=== PATIENT | female | born 1975 | race Caucasian/White ===

== ENCOUNTER 2018-10-11 11:00 | Emergency (ER) | payer OTHER ==
[~2018-10-11] VITALS: Ht 172.7 cm; Wt 63.5 kg
[~2018-10-11 11:00] MED LIST: ACETAMINOPHEN-1 EAC1 PO; ADDERALL 20 MG20 M1 PO; BENADRYL25 MG PO; CELEXA40 MG PO; COLESTIPOL HCL1 G1 PO; COMPAZINE10 MG PO; COUMADIN 4 MG TA4 M1; DOXYCYCLINE 10100 MG PO; FLOMAX0.4 MG PO; HYDROCODONE-AP1 EAC6 PO; IBUPROFEN 800800 M1 PO; LEXAPRO; LORTAB 5-500 T1 EAC1 PO; MACROBID 100 M100 M1 PO; MAXALT; MEDROL DOSPAK21 TA1 PO; MERCAPTOPURINE; NORCO 5-325 TA1 EACH PO; PENTASA500 MG PO; PHENERGAN 25 MG25 M1 PO; PREDNISONE; PREDNISONE 10 M10 M1 PO; TOPAMAX; VICODIN 5-5001 EACH PO; VISTARIL 25 MG25 M1 PO
[2018-10-11] MEDS ORDERED: NOHOMEMEDICATIONS (11:29)
[2018-10-11 12:04] LABS: URINE BILIRUBIN NEGATIVE (Negative); URINE BLOOD NEGATIVE (Negative); URINE CLARITY CLEAR; URINE COLOR YELLOW; URINE GLUCOSE-RANDOM NEGATIVE (Negative); URINE KETONES TRACE (Negative); URINE LEUKOCYTES-REFLEX NEGATIVE (Negative); URINE NITRITE-REFLEX NEGATIVE (Negative); URINE PROTEIN NEGATIVE (Negative); URINE SPECIFIC GRAVITY 1.025 (1.005-1.030); URINE UROBILINOGEN 0.2 E.U./dl (0.2-1.0)
[2018-10-11 12:12] LABS: ABSOLUTE BASOPHILS 0.1 thou/uL (0.0-0.2); ABSOLUTE EOSINOPHILS 0.5 thou/uL (0.0-0.7); ABSOLUTE MONOCYTES 0.6 thou/uL (0.0-1.2); ABSOLUTE NEUTROPHILS 6.6 thou/uL (1.6-8.1); BASOPHILS 0.9 %; EOSINOPHILS 5.1 %; MCH 31.9 pg (26.0-34.0); MCHC 34.1 g/dL (28.0-37.0); MCV 93.5 fL (80.0-100.0); MONOCYTES 5.7 %; MPV 7.5 fl. (7.2-11.1); NUCLEATED RBCS 0 /100WBC; PLATELET COUNT* 273 thou/uL (150-400); POLYS 67.3 %; RBC 4.06 mil/uL (4.20-5.00); RDW-CV 14.3 % (10.5-14.5); WBC 9.7 thou/uL (4.0-11.0)
[2018-10-11 12:20] LABS: ANION GAP 8 mmol/L (7-16); BUN 9 mg/dL (7-18); CALCIUM 8.5 mg/dL (8.5-10.1); CHLORIDE 102 mmol/L (98-107); CO2 31 mmol/L (21-32); CREATININE 0.6 mg/dL (0.6-1.3); GLUCOSE 88 mg/dL (70-99); POTASSIUM 3.4 mmol/L (3.5-5.1); SODIUM 141 mmol/L (136-145)
[2018-10-11 12:30] LABS: ALBUMIN 3.1 g/dL (3.4-5.0); ALKALINE PHOSPHATASE 71 U/L (46-116); LIPASE 59 U/L (73-393); NT-PRO BRAIN NAT PEPTIDE 45 pg/mL (<300); SGOT 24 U/L (15-37); SGPT 35 U/L (30-65); TOTAL BILIRUBIN 0.2 mg/dL (<0.1-1.0); TOTAL PROTEIN 6.1 g/dL (6.4-8.2); TROPONIN-I LEVEL <0.06 ng/mL (<0.06); URIC ACID* 4.7 mg/dL (2.6-7.2)
[2018-10-11 13:15] LABS: ESR (SEDRATE) 3 mm/hr (0-20)
[2018-10-11] MEDS ORDERED: BUTALB-APAP-CA1 EACH PO (13:53)
[2018-10-11] MEDS ORDERED: MEDROLDOSEPACK PO (13:53)
[2018-10-11] MEDS ORDERED: PHENERGAN 25 MG25 M1 PO (13:53)
[2018-10-11 14:28] LABS: AMP/METHAMP Negative (Negative); BARBITURATES Negative (Negative); BENZODIAZEPINES Negative (Negative); COCAINE Negative (Negative); METHADONE Negative (Negative); OPIATES POSITIVE (Negative); PCP Negative (Negative); THC POSITIVE (Negative)
--- NOTE | 2018-10-11 15:10 | EKG ---
[place] [address] ELECTROCARDIOGRAM REPORT Name: ETHAN CROSS Room: [facility]#: [id number] Admission: 10/11/18 Attend Phys: Discharge: Date of : 79 Report #: [id number] THIS REPORT FOR: //name// [facility] ED Test Date: 2018-10-11 Test Time: 13:20:34 Pat Name: ETHAN CROSS Department: Room: Gender: F Technical Sales Representatives: [facility] : 1975 Requested By: Izzy Collier Order Number: [id number] MD: Pablo Serrato Measurements Intervals [place] Rate: 54 P: 16 OR: 160 QRS: 76 QRSD: 100 T: 56 QT: 483 QTc: 458 Interpretive Statements Sinus rhythm No previous ECG available for comparison Electronically Signed On 10-11-2018 15:10:08 CDT by Pablo Serrato [email or web address] <ELECTRONICALLY SIGNED> By: Pablo Serrato MD, [facility] 10/11/18 1510 1320 1320 Pablo Serrato MD, FACC /EPI
[2018-10-11 15:45] VITALS: BP 95/50
== END 2018-10-11 15:47 | disposition home or self-care (01) ==
LOC: M.ERS 11:00
PROVIDERS: Nurse Practitioner Family
DX: G43.009 Migraine without aura, not intractable, without status migrainosus (principal); R53.1 Weakness; R42 Dizziness and giddiness; K50.90 Crohn's disease, unspecified, without complications; R60.1 Generalized edema; F32.9 Major depressive disorder, single episode, unspecified; F17.210 Nicotine dependence, cigarettes, uncomplicated; Z87.442 Personal history of urinary calculi; Z90.710 Acquired absence of both cervix and uterus; Z88.1 Allergy status to other antibiotic agents; Z88.2 Allergy status to sulfonamides; Z88.0 Allergy status to penicillin; Z88.6 Allergy status to analgesic agent; Z79.899 Other long term (current) drug therapy

== ENCOUNTER 2018-11-10 19:29 | Emergency (ER) | payer OTHER ==
[~2018-11-10] VITALS: Ht 160 cm; Wt 59.0 kg
[~2018-11-10 19:29] MED LIST changes: +BUTALB-APAP-CA1 EACH PO; +MEDROLDOSEPACK PO; +NOHOMEMEDICATIONS
[2018-11-10 19:45] LABS: ABSOLUTE BASOPHILS 0.1 thou/uL (0.0-0.2); ABSOLUTE EOSINOPHILS 0.7 thou/uL (0.0-0.7); ABSOLUTE MONOCYTES 0.7 thou/uL (0.0-1.2); ABSOLUTE NEUTROPHILS 5.5 thou/uL (1.6-8.1); BASOPHILS 0.8 %; EOSINOPHILS 6.1 %; HEMOGLOBIN 14.3 gm/dL (12.0-15.0); LYMPHOCYTES 41.3 %; MCH 30.5 pg (26.0-34.0); MCHC 33.3 g/dL (28.0-37.0); MCV 91.7 fL (80.0-100.0); MONOCYTES 5.8 %; MPV 7.2 fl. (7.2-11.1); NUCLEATED RBCS 0 /100WBC; PLATELET COUNT* 365 thou/uL (150-400)
[2018-11-10 19:51] LABS: ANION GAP 10 mmol/L (7-16); BUN 8 mg/dL (7-18); CHLORIDE 111 mmol/L (98-107); CO2 28 mmol/L (21-32); CREATININE 0.7 mg/dL (0.6-1.3); GLUCOSE 109 mg/dL (70-99); POTASSIUM 3.2 mmol/L (3.5-5.1); SODIUM 149 mmol/L (136-145)
[2018-11-10 20:04] LABS: ALBUMIN 3.6 g/dL (3.4-5.0); ALKALINE PHOSPHATASE 99 U/L (46-116); SGOT 25 U/L (15-37); SGPT 32 U/L (30-65); TOTAL BILIRUBIN 0.2 mg/dL (<0.1-1.0); TOTAL PROTEIN 7.3 g/dL (6.4-8.2); TROPONIN-I LEVEL <0.06 ng/mL (<0.06)
[2018-11-10 21:06] LABS: URINE BILIRUBIN NEGATIVE (Negative); URINE BLOOD NEGATIVE (Negative); URINE CLARITY CLEAR; URINE COLOR YELLOW; URINE GLUCOSE-RANDOM NEGATIVE (Negative); URINE KETONES NEGATIVE (Negative); URINE LEUKOCYTES-REFLEX NEGATIVE (Negative); URINE NITRITE-REFLEX NEGATIVE (Negative); URINE PROTEIN NEGATIVE (Negative); URINE SPECIFIC GRAVITY <= 1.005 (1.005-1.030); URINE UROBILINOGEN 0.2 E.U./dl (0.2-1.0)
[2018-11-10 21:15] LABS: AMP/METHAMP Negative (Negative); BARBITURATES Negative (Negative); BENZODIAZEPINES Negative (Negative); COCAINE Negative (Negative); METHADONE Negative (Negative); OPIATES Negative (Negative); PCP Negative (Negative); THC POSITIVE (Negative)
[2018-11-11 06:05] VITALS: BP 122/80
--- NOTE | 2018-11-11 16:14 | EKG ---
[place] [address] ELECTROCARDIOGRAM REPORT Name: ETHAN CROSS Room: [facility]#: [id number] Admission: 11/10/18 Attend Phys: Discharge: 11/11/18 Date of : 79 Report #: [id number] THIS REPORT FOR: //name// [facility] ED Test Date: 2018-11-10 Test Time: 20:08:24 Pat Name: ETHAN CROSS Department: Room: Gender: F [employer] Stand Attendant: NIKO : 1975 Requested By: Thomas Padilla Order Number: [id number] MD: Cedric Roberts Measurements Intervals [place] Rate: 100 P: 75 MS: 161 QRS: 81 QRSD: 91 T: 58 QT: 363 QTc: 469 Interpretive Statements Sinus tachycardia Probable left atrial enlargement Compared to ECG 10/11/2018 13:20:34 Sinus rhythm no longer present Electronically Signed On 11-11-2018 16:14:07 CDT by Cedric Roberts [email or web address] <ELECTRONICALLY SIGNED> By: Cedric Roberts MD, [facility] 11/11/18 1614 07 07 Cedric Roberts MD, FACC /EPI
== END 2018-11-11 06:05 | disposition home or self-care (01) ==
LOC: M.ERS 19:29
PROVIDERS: Emergency Medicine Emergency Medical Services
DX: F10.129 Alcohol abuse with intoxication, unspecified (principal); F17.210 Nicotine dependence, cigarettes, uncomplicated; F10.10 Alcohol abuse, uncomplicated; F32.9 Major depressive disorder, single episode, unspecified; K50.90 Crohn's disease, unspecified, without complications; G43.909 Migraine, unspecified, not intractable, without status migrainosus; Z86.14 Personal history of Methicillin resistant Staphylococcus aureus infection; Z88.0 Allergy status to penicillin; Z88.2 Allergy status to sulfonamides; Z88.1 Allergy status to other antibiotic agents; Z90.710 Acquired absence of both cervix and uterus; Z88.5 Allergy status to narcotic agent

== ENCOUNTER 2019-11-28 16:44 | Emergency (ER) | payer MEDICARE ==
[~2019-11-28] VITALS: Ht 172.7 cm; Wt 68.0 kg
[2019-11-28] MEDS ORDERED: CLEOCIN HCL300 MG PO (16:51)
[2019-11-28] MEDS ORDERED: NORCO 5-325 TA1 EAC2 PO (16:58)
[2019-11-28] MEDS ORDERED: CIPRODEX OTIC7.5 ML OTIC (16:58)
[2019-11-28 16:59] VITALS: BP 135/97
== END 2019-11-28 17:03 | disposition home or self-care (01) ==
LOC: M.ERS 16:44
DX: H60.91 Unspecified otitis externa, right ear (principal); G43.909 Migraine, unspecified, not intractable, without status migrainosus; K50.90 Crohn's disease, unspecified, without complications; F17.210 Nicotine dependence, cigarettes, uncomplicated; Z87.442 Personal history of urinary calculi; Z90.49 Acquired absence of other specified parts of digestive tract; Z86.14 Personal history of Methicillin resistant Staphylococcus aureus infection; Z88.1 Allergy status to other antibiotic agents; Z88.0 Allergy status to penicillin; Z88.2 Allergy status to sulfonamides; Z88.6 Allergy status to analgesic agent; Z90.710 Acquired absence of both cervix and uterus